=== PATIENT | male | born 1940 | race Caucasian/White ===

== ENCOUNTER 2019-08-12 18:51 | Inpatient (IN) ==
[2019-08-12 20:50] LABS: BASOPHILS % (AUTO) 0.3 % (0.2-1.0); EOSINOPHILS % (AUTO) 0.1 % (0.9-2.9); HEMATOCRIT 45.2 % (42.0-54.0); HEMOGLOBIN 15.4 g/dL (13.5-18.0); LYMPHOCYTES # (AUTO) 1.2 X10^3/uL (1.3-2.9); LYMPHOCYTES % (AUTO) 8.7 % (21.0-51.0); MEAN CORPUSCULAR HEMOGLOBIN 29.6 pg (27.0-34.0); MEAN CORPUSCULAR HGB CONC 34.1 g/dL (33.0-35.0); MEAN CORPUSCULAR VOLUME 86.8 fL (80.0-100.0); MEAN PLATELET VOLUME 9.2 fL (7.4-11.0); MONOCYTES # (AUTO) 0.6 x10^3/uL (0.3-0.8); MONOCYTES % (AUTO) 4.1 % (0.0-13.0); NEUTROPHILS # (AUTO) 11.8 x10^3/uL (2.2-4.8); NEUTROPHILS % (AUTO) 86.8 % (42.0-75.0); PLATELET COUNT 199 X10^3/uL (150.0-450.0); RED BLOOD COUNT 5.21 X10^6/uL (4.7-6.0); RED CELL DISTRIBUTION WIDTH 14.1 % (11.6-16.5); WHITE BLOOD COUNT 13.6 X10^3/uL (3.6-10.0)
--- NOTE | 2019-08-12 20:50 | DR.GENAD ---
HPI Time Seen Time Seen by Provider: 08/12/19 20:32 PCP Primary Care Physician: LIZBET VEGA HPI Comment HPI Comment: PATIENT IS 79YR OLD MALE IN ER WITH GENERALIZED WEAKNESS AND MALAISE TIMES 3 WEEKS. TREATED FOR SINUS INFECTION TWICE. NOT RESOLVING AND GETTING WORSE. EATING POORLY AND FEELING WEAKER. Complaint/Symptoms Chief Complaint Doctors Comments: GENERALIZED WEAKNESS AND MALAISE TIMES 3 WEE [place]. Chief Complaint:: PT AMBULATED IN ED WITH C/O WEAK AND SICK X 3 WEEKS. STATES HE HAS BEEN BEING TREATED FOR SINUS INFECTION BUT HAS BEEN GETTING WEAKER AND WEAKER. Nurses notes reviewed Nurses Notes Review: Yes Source History Provided: Patient Mode of Arrival Mode of Arrival: Ambulatory Timing Onset of Chief Complaint: 07/22/19 Came on: Gradually Duration Duration: Constant Duration: Weeks Severity Severity: Moderate Modifying Factors Worsens:: MOVEMENT Improves:: REST. Other History Other History: DM, HTN. PMH PMH Past Medical History: Yes Past Medical History: Arthritis, Diabetes, Dyslipidemia, GERD, Hypertension and Hypothyroidism Past Surgical History: Yes Surgical History: Appendectomy and Ortho Surgery Family History History of Family Medical Conditions: No Social History Does patient currently use any type of tobacco product: No Have you used tobacco products in the last 12 months: No Type of Tobacco Use: None Does any household member use tobacco: No Alcohol Use: None Do you use any recreational Drugs:: No Lives With: Spouse Lives Where: Home infectious screening In the last 2 months have you had wt loss of >10#?: NO Have you had fever, night sweats or hemotysis?: No Have you traveled outside the country in the last 6 months?: No Isolation: Standard ROS Review of Systems Constitutional: See HPI, Malaise, Weakness and Fatigue; negative Fever Eyes: No Symptoms Reported and See HPI ENTM: No Symptoms Reported and See HPI Respiratoy: No Symptoms Reported and See HPI; negative Moist Cough, Short of Breath and Wheezing Cardiovascular: No Symptoms Reported and See HPI; negative Chest Pain, Edema and Palpitations Gastrointestinal/Abdominal: No Symptoms Reported and See HPI; negative Abdominal Pain, Diarrhea, Nausea and Vomiting Genitourinary: No Symptoms Reported and See HPI; negative Dysuria, Frequency and Hematuria Neurological: See HPI and Weakness; negative Headache and Dizziness Musculoskeletal: No Symptoms Reported and See HPI; negative Back Pain Integumentary: No Symptoms Reported and See HPI; negative Change in Color, Rash and Juandice Hematologic/Lymphatic: No Symptoms Reported and See HPI; negative Easy Bruising and Swollen Glands Endocrine: No Symptoms Reported, See HPI and Decreased Appetite; negative Increased Thirst and Increased Urine Psychiatric: No Symptoms Reported and See HPI All Other Systems: Reviewed and Negative PE Vital Signs Vitals: Temperature 97.8 F Pulse Rate [Left Brachial] 53 Pulse Rate 81 Respiratory Rate 20 Blood Pressure [Left Arm] 190/83 Blood Pressure 162/72 O2 Sat by Pulse Oximetry 99 General Limitations: No Limitations General Appearance: Alert and In No Apparent Distress Head Head Exam: Normal Inspection and Atraumatic Eyes Eye exam: Normal Appearance, PERRL and EOMI; negative Scleral Icterus and Conjunctival Injection ENT ENT Exam: Normal Exam and Normal Oropharynx; negative Normal External Ear Exam External Ear Exam: Normal External Inspection; negative Auricular Hematoma, Auricular Trauma and Pain with Movement TM/Canal Exam: Bilateral: Normal Nose Exam: Normal Nose Exam and Sinus Tenderness Mouth Exam: Normal Inspection Throat Exam: Normal Inspection Neck Neck Exam: Normal Inspection and Trachea Midline; negative Tenderness and Lymphadenopathy Chest Chest Inspection: Normal Inspection and Symmetric Chest Wall Rise; negative Tenderness Respiratory Respiratory Exam: Normal Lung Sounds Bilat; negative Accessory Muscle Use, Chest Wall Tenderness and Respiratory Distress Respiratory Exam: Bilateral: Rhonchi and Lower: Rhonchi Cardiovascular Cardiovascular Exam: Regular Rate, Normal Rhythm and Normal Heart Sounds Abdominal Exam Abdominal Exam: Normal Inspection, Normal Bowel Sounds and Soft; negative Tenderness Extremities Extremities Exam: Normal Inspection and Normal Capillary Refill; negative Tenderness, Edema and Calf Tenderness Back Back Exam: Normal Inspection; negative (R) CVA Tenderness and (L) CVA Tenderness Neurologic Neurological Exam: Alert, Oriented X3 and CN II-XII Intact; negative Motor Sensory Deficit Psychiatric Psychiatric Exam: Normal Affect and Normal Mood Skin Skin Exam: Dry MDM Additional Information Additional Information Obtained From: Family Differential Diagnosis Differential Diagnosis: GENERALIZED WEAKNESS, PNEUMONIA, SINUSITIS, COURSE Treatment Treatment: SEE ORDERS. Education/Counseling Education/Counseling: Patient and Family Educated On: Diagnosis ROR Labs Reviewed Laboratory Results Reviewed?: Yes Result Diagrams: 08/15/19 05:00 08/15/19 05:00 Laboratory: WBC 13.6 X10^3/uL (3.6-10.0) H 08/12/19 20:42 RBC 5.21 X10^6/uL (4.7-6.0) 08/12/19 20:42 Hgb 15.4 g/dL (13.5-18.0) 08/12/19 20: Hct 45.2 % (42.0-54.0) 08/12/19 20: MCV 86.8 fL (80.0-100.0) 08/12/19 20: MCH 29.6 pg (27.0-34.0) 08/12/19: MCHC 34.1 g/dL (33.0-35.0) 08/12/19: RDW 14.1 % (11.6-16.5) 08/12/19: Plt Count 199 X10^3/uL (150.0-450.0) 08/12/19 MPV 9.2 fL (7.4-11.0) 08/12/19 20 Neut % (Auto) 86.8 % (42.0-75.0) H 08/12/19: Lymph % (Auto) 8.7 % (21.0-51.0) L 08/12/19 20: [place] % (Auto) 4.1 % (0.0-13.0) 08/12/19 Eos % (Auto) 0.1 % (0.9-2.9) L 08/12/19 Baso % (Auto) 0.3 % (0.2-1.0) 08/12/19 20: Neut # (Auto) 11.8 x10^3/uL (2.2-4.8) H 08/12/19: Lymph # (Auto) 1.2 X10^3/uL (1.3-2.9) L 08/12/19 20: [place] # (Auto) 0.6 x10^3/uL (0.3-0.8) 08/12/19 Eos # (Auto) 0.0 x10^3/uL (0.0-0.2) 08/12/19 20 Baso # (Auto) 0.0 X10^3/uL (0.0-0.1) 08/12/19: Absolute Nucleated RBC 0.0 /100WBC 02/26/20 20:42 Sodium 125 mmol/L (136-145) L* 08/12/19 20:42 Corrected Sodium 133 mmol/L (136-145) L 08/12/19 20:42 Potassium 5.3 mmol/L (3.5-5.1) H 08/12/19 20:42 Chloride 91 mmol/L (98-107) L 08/12/19 20:42 Carbon Dioxide 25.7 mmol/L (21-32) 08/12/19 20:42 BUN 40 mg/dL (7-18) H 08/12/19 20:42 Creatinine 2.17 mg/dL (0.70-1.30) H 08/12/19 20:42 Est GFR (MDRD) Af Amer 38 (>60) L 08/12/19 20:42 Est GFR (MDRD) Non-Af 31 (>60) L 08/12/19 20:42 Glucose 440 mg/dL (65-99) H 08/12/19 20:42 POC Glucose (mg/dL) 280 mg/dL (65-99) H 08/13/19 01:58 Calcium 9.2 mg/dL (8.5-10.1) 08/12/19 20:42 Corrected Calcium TNP 08/12/19 20:42 Total Bilirubin 1.00 mg/dL (0.2-1.0) 08/12/19 20:42 AST 13 Units/L (15-37) L 08/12/19 20:42 ALT 24 Units/L (12-78) 08/12/19 20:42 Alkaline Phosphatase 66 Units/L (46-116) 08/12/19 20:42 Creatine Kinase 63 Units/L (39-308) 08/13/19 00:49 CK-MB (CK-2) 2.1 ng/mL (0-4.0) 08/13/19 00:49 CK/CKMB % Calc 3.3 % (<4) 08/13/19 00:49 Troponin I 0.08 ng/mL (0-1.5) 08/13/19 00:49 Total Protein 7.3 g/dL (6.4-8.2) 08/12/19 20:42 Albumin 4.1 g/dL (3.4-5.0) 08/12/19 20:42 Globulin 3.2 g/dL (2.5-4.5) 08/12/19 20:42 Albumin/Globulin Ratio 1.3 Ratio (1.1-2.1) 08/12/19 20:42 Specimen Type Clean catch urine 08/12/19 21:13 Urine Color Yellow (YELLOW) 08/12/19 21:13 Urine Appearance Clear (CLEAR) 08/12/19 21:13 Urine pH 5.0 (5.0 - 8.0) 08/12/19 21:13 Ur Specific [place] 1.010 (1.000-1.030) 08/12/19 21:13 Urine Protein Negative (NEGATIVE) 08/12/19 21:13 Urine Glucose (UA) 4+ (NEGATIVE) 08/12/19 21:13 Urine Ketones Negative (NEGATIVE) 08/12/19 21:13 Urine Occult Blood Negative (NEGATIVE) 08/12/19 21:13 Urine Nitrite Negative (NEGATIVE) 08/12/19 21:13 Urine Bilirubin Negative (NEGATIVE) 08/12/19 21:13 Urine Urobilinogen Normal (NORMAL) 08/12/19 21:13 Ur Leukocyte Esterase Negative (NEGATIVE) 08/12/19 21:13 Acetone, Semi-Quant Negative (NEGATIVE) 08/12/19 20:42 XRAY XRAY Interpreted by: Radiologist (REPORT NOTED AND DISCUSSED WITH PATIENT.) and Self EKG Rate: 52 [place]: Normal Rhythm: NSR Block: None Hypertrophy: None ST: Normal Opioid Opioid Risk Tool Age (Daren box if 16-45): No History of Preadolescent Sexual Abuse: No Total: 0 Total Score Risk Category: Low Risk Copyright: Tyrone POLLOCK predicting aberrant behaviors Diagnosis Discharge Problem: Acute hyperglycemia, Weakness, Abnormal cardiac enzyme level Instructions Forms: Excuse From Work Patient Portal
[2019-08-12] MEDS ORDERED: NS 1000 ML 1,000 ML ONE (21:01)
--- NOTE | 2019-08-12 21:03 | RAD ---
CHEST, 1 VIEWHistory: ACUTE CHEST PAIN, WEAKNESS AND FATIGUEComparison: 09/03/2017Findings: Cardiac silhouette is normal in size. No acute alveolar infiltrate or significant effusion is identified. No pneumothorax.Impression: No acute cardiopulmonary abnormality.Electronically signed by: QUINN CHOPRA (Aug 12, 2019 21:00:47)
[2019-08-12 21:08] LABS: ALANINE AMINOTRANSFERASE 24 Units/L (12-78); ALBUMIN 4.1 g/dL (3.4-5.0); ALKALINE PHOSPHATASE 66 Units/L (46-116); ASPARTATE AMINO TRANSFERASE 13 Units/L (15-37); BLOOD UREA NITROGEN 40 mg/dL (7-18); CALCIUM 9.2 mg/dL (8.5-10.1); CARBON DIOXIDE 25.7 mmol/L (21-32); CHLORIDE 91 mmol/L (98-107); CKMB % 3.2 % (<4); COR NA(FOR HYPERGLY) 133 mmol/L (136-145); CREATINE KINASE 74 Units/L (39-308); CREATINE KINASE MB 2.4 ng/mL (0-4.0); CREATININE 2.17 mg/dL (0.70-1.30); TOTAL PROTEIN 7.3 g/dL (6.4-8.2); TROPONIN I 0.06 ng/mL (0-1.5); eGFR NON BLACK RACES 31 (>60)
[2019-08-12 21:10] LABS: SODIUM 125 mmol/L (136-145)
[2019-08-12 21:22] LABS: BILIRUBIN,URINE NEGATIVE (NEGATIVE); BLOOD/HEMOGLOBIN,URINE NEGATIVE (NEGATIVE); GLUCOSE, URINE 4+ (NEGATIVE); KETONES,URINE NEGATIVE (NEGATIVE); LEUKOCYTE ESTERASE ,URINE NEGATIVE (NEGATIVE); NITRITES,URINE NEGATIVE (NEGATIVE); PROTEIN,URINE NEGATIVE (NEGATIVE); UROBILINOGEN,URINE NORMAL (NORMAL)
[2019-08-12 21:26] LABS: APPEARANCE,URINE CLEAR (CLEAR); COLOR,URINE YELLOW (YELLOW)
[2019-08-12] MEDS: NS 1000 ML 1,000 ML IV SCH (21:41)
[2019-08-13 01:28] LABS: CKMB % 3.3 % (<4); CREATINE KINASE MB 2.1 ng/mL (0-4.0); TROPONIN I 0.08 ng/mL (0-1.5)
[2019-08-13] MEDS ORDERED: NS 1000 ML 1,000 ML IV SCH (02:00)
[2019-08-13] MEDS ORDERED: NORVASC TAB 5 MG ONE (02:01)
[2019-08-13 03:55] VITALS: BMI 29.7
[2019-08-13 05:50] LABS: BASOPHILS % (AUTO) 0.3 % (0.2-1.0); EOSINOPHILS # (AUTO) 0.1 x10^3/uL (0.0-0.2); HEMATOCRIT 43.4 % (42.0-54.0); HEMOGLOBIN 14.7 g/dL (13.5-18.0); LYMPHOCYTES # (AUTO) 1.7 X10^3/uL (1.3-2.9); LYMPHOCYTES % (AUTO) 20.8 % (21.0-51.0); MEAN CORPUSCULAR HEMOGLOBIN 29.5 pg (27.0-34.0); MEAN CORPUSCULAR VOLUME 86.8 fL (80.0-100.0); MEAN PLATELET VOLUME 9.4 fL (7.4-11.0); MONOCYTES # (AUTO) 0.4 x10^3/uL (0.3-0.8); MONOCYTES % (AUTO) 4.9 % (0.0-13.0); NEUTROPHILS # (AUTO) 6.1 x10^3/uL (2.2-4.8); PLATELET COUNT 166 X10^3/uL (150.0-450.0); RED CELL DISTRIBUTION WIDTH 14.1 % (11.6-16.5); WHITE BLOOD COUNT 8.3 X10^3/uL (3.6-10.0)
[2019-08-13] MEDS ORDERED: HumuLIN R ONE (05:58)
[2019-08-13] MEDS: HumuLIN R SC PRN ×4 (06:00→17:33)
[2019-08-13 06:23] LABS: ALANINE AMINOTRANSFERASE 19 Units/L (12-78); ALBUMIN 3.6 g/dL (3.4-5.0); ALKALINE PHOSPHATASE 56 Units/L (46-116); ASPARTATE AMINO TRANSFERASE 12 Units/L (15-37); BLOOD UREA NITROGEN 33 mg/dL (7-18); CALCIUM 8.5 mg/dL (8.5-10.1); CARBON DIOXIDE 27.2 mmol/L (21-32); CHLORIDE 100 mmol/L (98-107); CHOL/HDL RATIO 2.7 (0.0-5.0); CHOLESTEROL 166 mg/dL (0-200); COR NA(FOR HYPERGLY) 136 mmol/L (136-145); CREATINE KINASE 60 Units/L (39-308); CREATINE KINASE MB 2.4 ng/mL (0-4.0); CREATININE 1.76 mg/dL (0.70-1.30); HDL CHOLESTEROL 61 mg/dL (40-60); MAGNESIUM 2.1 mg/dL (1.7-2.9); SODIUM 132 mmol/L (136-145); TOTAL PROTEIN 6.5 g/dL (6.4-8.2); TRIGLYCERIDES 53 mg/dL (0-150); TROPONIN I 0.07 ng/mL (0-1.5); eGFR NON BLACK RACES 40 (>60)
[2019-08-13] MEDS ORDERED: SAW PALMETTO PO SCH (09:00)
[2019-08-13] MEDS ORDERED: PATIENT'S HOME MEDICATION (Diclofenac Sodium 75 MG) PO SCH (09:00)
[2019-08-13] MEDS ORDERED: NORVASC TAB 10 MG PO SCH (09:00)
[2019-08-13] MEDS ORDERED: LEVAQUIN TAB 500 MG PO SCH (09:00)
[2019-08-13] MEDS: LEVAQUIN PREMIX IV 750 MG 750 MG/150 ML BAG IV SCH (09:43)
[2019-08-13] MEDS: ASPIRIN EC 81 MG PO SCH (09:55)
[2019-08-13] MEDS: NAPROSYN PO SCH ×2 (09:56→20:57)
[2019-08-13] MEDS: AMARYL TAB 4 MG PO SCH ×2 (10:33→20:57)
[2019-08-13 11:34] LABS: CKMB % 3.4 % (<4); CREATINE KINASE MB 2.1 ng/mL (0-4.0); TROPONIN I 0.05 ng/mL (0-1.5)
--- NOTE | 2019-08-13 11:44 | DR.H&P ---
H&P History & Physical for Day of: H&P Date: 08/13/19 Chief Complaint Chief Complaint: weakness, dehydration Allergies Allergies Allergy/AdvReac Type Severity Reaction Status Date / Time acetaminophen [From Percocet] Allergy Verified 03/16/18 06:31 oxycodone [From Percocet] Allergy Verified 03/16/18 06:31 History of Present Illness History of Present Illness: Mr. Chatman is a 79y/o male with a PMH of HTN, DM, HLD, BPH and GERD who presented due to weakness. Patient has been treated for sinus infection for the past 2 weeks. He states he took an antibiotic for 10 days but continued to have congestion and cough so he went back to PCP and was given steroids and a shot but he continued to get weaker and weaker. He states he was feeling SOB on walking at home. He was not able to get around due to being so weak and getting short of breath. He denies N/V/D or abdominal pain. Denies chest pain or pressure, no dizziness. ED work-up: CXR negative Labs: Na: 125 Cr: 2.17 K:5.3 Tropinin: 0.06, 0.08 Received IVF Past Medical History Past Medical History: Arthritis, Diabetes, Dyslipidemia, GERD, Hypertension and Hypothyroidism Past Surgical History Surgical History: Appendectomy and Ortho Surgery Family History Family Medical History: Diabetes Mellitus Social History Does patient currently use any type of tobacco product: No Have you used tobacco products in the last 12 months: No Type of Tobacco Use: None Does any household member use tobacco: No Alcohol Use: None Drug Use: None Prescription drug monitoring program results: PDMP was not reviewed Medications Home Medications: acetaminophen [From Percocet] Allergy (Verified 03/16/18 06:31) oxycodone [From Percocet] Allergy (Verified 03/16/18 06:31) CONTINUE taking the following medications amlodipine 10 mg PO HS 08/12/19 [History] aspirin [Aspirin Low Dose] 81 mg PO DAILY 08/12/19 [History] diclofenac sodium 75 mg PO BIDWM 08/12/19 [History] diphenhydramine HCl [Benadryl] 25 mg PO PRN PRN 08/12/19 [History] glimepiride 4 mg PO BID 08/12/19 [History] hydrochlorothiazide 25 mg PO DAILY 08/12/19 [History] levofloxacin 500 mg PO DAILY 08/12/19 [History] losartan 50 mg PO DAILY 08/12/19 [History] pantoprazole 40 mg PO HS 08/12/19 [History] pravastatin 40 mg PO HS 08/12/19 [History] saw palmetto fruit 900 mg PO DAILY 08/12/19 [History] tamsulosin 0.4 mg PO HS 08/12/19 [History] insulin glargine [Lantus Solostar U-100 Insulin] See Rx Instructions .ROUTE .COMPLEX PRN 08/13/19 [History] testosterone cypionate 1 mg IM Q2W 08/13/19 [History] Labs Result Diagrams: 08/13/19 04:55 08/13/19 04:55 Labs: Laboratory WBC 8.3 X10^3/uL (3.6-10.0) 08/13/19 04:55 RBC 5.00 X10^6/uL (4.7-6.0) 08/13/19 04:55 Hgb 14.7 g/dL (13.5-18.0) 08/13/19 04:55 Hct 43.4 % (42.0-54.0) 08/13/19 04:55 MCV 86.8 fL (80.0-100.0) 08/13/19 04:55 MCH 29.5 pg (27.0-34.0) 08/13/19 04:55 MCHC 34.0 g/dL (33.0-35.0) 08/13/19 04:55 RDW 14.1 % (11.6-16.5) 08/13/19 04:55 Plt Count 166 X10^3/uL (150.0-450.0) 08/13/19 04:55 MPV 9.4 fL (7.4-11.0) 08/13/19 04:55 Neut % (Auto) 73.0 % (42.0-75.0) 08/13/19 04:55 Lymph % (Auto) 20.8 % (21.0-51.0) L 08/13/19 04:55 [place] % (Auto) 4.9 % (0.0-13.0) 08/13/19 04:55 Eos % (Auto) 1.0 % (0.9-2.9) 08/13/19 04:55 Baso % (Auto) 0.3 % (0.2-1.0) 08/13/19 04:55 Neut # (Auto) 6.1 x10^3/uL (2.2-4.8) H 08/13/19 04:55 Lymph # (Auto) 1.7 X10^3/uL (1.3-2.9) 08/13/19 04:55 [place] # (Auto) 0.4 x10^3/uL (0.3-0.8) 08/13/19 04:55 Eos # (Auto) 0.1 x10^3/uL (0.0-0.2) 08/13/19 04:55 Baso # (Auto) 0.0 X10^3/uL (0.0-0.1) 08/13/19 04:55 Absolute Nucleated RBC 0.1 /100WBC 08/13/19 04:55 Sodium 132 mmol/L (136-145) L 08/13/19 04:55 Corrected Sodium 136 mmol/L (136-145) 08/13/19 04:55 Potassium 4.4 mmol/L (3.5-5.1) 08/13/19 04:55 Chloride 100 mmol/L (98-107) 08/13/19 04:55 Carbon Dioxide 27.2 mmol/L (21-32) 08/13/19 04:55 BUN 33 mg/dL (7-18) H 08/13/19 04:55 Creatinine 1.76 mg/dL (0.70-1.30) H 08/13/19 04:55 Est GFR (MDRD) Af Amer 48 (>60) L 08/13/19 04:55 Est GFR (MDRD) Non-Af 40 (>60) L 08/13/19 04:55 Glucose 264 mg/dL (65-99) H 08/13/19 04:55 POC Glucose (mg/dL) 178 mg/dL (65-99) H 08/13/19 10:53 Calcium 8.5 mg/dL (8.5-10.1) 08/13/19 04:55 Corrected Calcium TNP 08/13/19 04:55 Magnesium 2.1 mg/dL (1.7-2.9) 08/13/19 04:55 Total Bilirubin 1.10 mg/dL (0.2-1.0) H 08/13/19 04:55 AST 12 Units/L (15-37) L 08/13/19 04:55 ALT 19 Units/L (12-78) 08/13/19 04:55 Alkaline Phosphatase 56 Units/L (46-116) 08/13/19 04:55 Creatine Kinase 60 Units/L (39-308) 08/13/19 04:55 CK-MB (CK-2) 2.4 ng/mL (0-4.0) 08/13/19 04:55 CK/CKMB % Calc 4.0 % (<4) 08/13/19 04:55 Troponin I 0.07 ng/mL (0-1.5) 08/13/19 04:55 Total Protein 6.5 g/dL (6.4-8.2) 08/13/19 04:55 Albumin 3.6 g/dL (3.4-5.0) 08/13/19 04:55 Globulin 2.9 g/dL (2.5-4.5) 08/13/19 04:55 Albumin/Globulin Ratio 1.2 Ratio (1.1-2.1) 08/13/19 04:55 Triglycerides 53 mg/dL (0-150) 08/13/19 04:55 Cholesterol 166 mg/dL (0-200) 08/13/19 04:55 LDL Cholesterol, Calc 94 mg/dL (0-100) 08/13/19 04:55 HDL Cholesterol 61 mg/dL (40-60) H 08/13/19 04:55 Cholesterol/HDL Ratio 2.7 (0.0-5.0) 08/13/19 04:55 Specimen Type Clean catch urine 08/12/19 21:13 Urine Color Yellow (YELLOW) 08/12/19 21:13 Urine Appearance Clear (CLEAR) 08/12/19 21:13 Urine pH 5.0 (5.0 - 8.0) 08/12/19 21:13 Ur Specific [place] 1.010 (1.000-1.030) 08/12/19 21:13 Urine Protein Negative (NEGATIVE) 08/12/19 21:13 Urine Glucose (UA) 4+ (NEGATIVE) 08/12/19 21:13 Urine Ketones Negative (NEGATIVE) 08/12/19 21:13 Urine Occult Blood Negative (NEGATIVE) 08/12/19 21:13 Urine Nitrite Negative (NEGATIVE) 08/12/19 21:13 Urine Bilirubin Negative (NEGATIVE) 08/12/19 21:13 Urine Urobilinogen Normal (NORMAL) 08/12/19 21:13 Ur Leukocyte Esterase Negative (NEGATIVE) 08/12/19 21:13 Acetone, Semi-Quant Negative (NEGATIVE) 08/12/19 20:42 Review of Systems Constitutional: Weakness and Malaise; denies Fever, Chills and Sweats Eyes: No Symptoms Reported ENT: Nose Discharge and Nose Congestion Respiratory: Cough, Shortness of Breath and SOB with Excertion; denies Hemoptysis, Sputum and Wheezing Cardiovascular: Edema; denies Chest Pain and Light Headedness Gastrointestinal: denies Nausea, Vomiting, Abdominal Pain and Diarrhea Genitourinary: No Symptoms Reported Musculoskeletal: No Symptoms Reported Skin: No Symptoms Reported Neurological: No Symptoms Reported Physical Exam Vital Signs: Temperature 97.9 F Pulse Rate [Left Brachial] 63 Pulse Rate 81 Respiratory Rate 24 Blood Pressure [Left Arm] 159/77 Blood Pressure 162/72 O2 Sat by Pulse Oximetry 100 Oriented: Normal Nose: Normal Throat: Normal Respiratory: RLL Rales and LLL Rales Cardiovascular: Normal and Edema Auscultation: Bowel Sounds: Normal Tenderness: Normal Skin: Normal Musculoskeletal: Normal Psychiatric: Normal Mood Description: Calm Affect: Normal Speech Pattern: Clear and Appropriate Assessment/Plan (1) Weakness: Status: Acute Plan: due to dehydration and infection Continue gentle hydration. PT/OT (2) Abnormal cardiac enzyme level: Status: Acute Plan: Denies chest pain, troponin: 0.06 - 0.08 - 0.07 Continue telemetry Will get an echo to eval LV function due to edema (3) HTN (hypertension): Qualifiers: Hypertension type: essential hypertension Qualified Code(s): I10 - Essential (primary) hypertension Status: Acute Plan: HCTZ and losartan held due to DAMARIS, hyperkalemia and dehydration Continue amlodipine (4) DAMARIS (acute kidney injury): Status: Acute Plan: Cr: 2.17. trending down 1.76 with hydration Monitor AM labs, avoid nephrotoxic medications (5) Dehydration: Status: Acute Plan: Continue gentle hydration, LE edema noted. Continue to monitor. 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
[2019-08-13] MEDS: NS 1000 ML 1,000 ML IV SCH (12:32)
[2019-08-13] MEDS: LOVENOX INJ 40 MG SYR SC SCH (12:35)
[2019-08-13] MEDS: SNACK - Diabetic Appropriate PO SCH (20:56)
[2019-08-13] MEDS: FLOMAX PO SCH (20:57)
[2019-08-13] MEDS: NORVASC TAB 10 MG PO SCH (20:58)
[2019-08-13] MEDS: PRAVACHOL PO SCH (20:58)
[2019-08-13] MEDS: PROTONIX TAB 40 MG PO SCH (20:58)
[2019-08-14] MEDS: NS 1000 ML 1,000 ML IV SCH ×2 (02:27→02:28)
[2019-08-14 06:13] LABS: BASOPHILS % (AUTO) 0.7 % (0.2-1.0); EOSINOPHILS # (AUTO) 0.1 x10^3/uL (0.0-0.2); EOSINOPHILS % (AUTO) 2.5 % (0.9-2.9); HEMATOCRIT 39.6 % (42.0-54.0); HEMOGLOBIN 13.7 g/dL (13.5-18.0); LYMPHOCYTES # (AUTO) 1.5 X10^3/uL (1.3-2.9); LYMPHOCYTES % (AUTO) 28.7 % (21.0-51.0); MEAN CORPUSCULAR HEMOGLOBIN 29.7 pg (27.0-34.0); MEAN CORPUSCULAR HGB CONC 34.7 g/dL (33.0-35.0); MEAN CORPUSCULAR VOLUME 85.5 fL (80.0-100.0); MEAN PLATELET VOLUME 9.1 fL (7.4-11.0); MONOCYTES # (AUTO) 0.4 x10^3/uL (0.3-0.8); MONOCYTES % (AUTO) 6.6 % (0.0-13.0); NEUTROPHILS # (AUTO) 3.3 x10^3/uL (2.2-4.8); NEUTROPHILS % (AUTO) 61.5 % (42.0-75.0); PLATELET COUNT 137 X10^3/uL (150.0-450.0); RED BLOOD COUNT 4.63 X10^6/uL (4.7-6.0); RED CELL DISTRIBUTION WIDTH 14.2 % (11.6-16.5); WHITE BLOOD COUNT 5.3 X10^3/uL (3.6-10.0)
[2019-08-14 06:38] LABS: CARBON DIOXIDE 23.5 mmol/L (21-32); CREATININE 1.5 mg/dL (0.70-1.30)
[2019-08-14] MEDS ORDERED: COLACE CAP 100 MG PO STA (08:17)
[2019-08-14] MEDS ORDERED: COLACE CAP 100 MG PO ONE (08:27)
[2019-08-14] MEDS: LOVENOX INJ 40 MG SYR SC SCH (08:30)
[2019-08-14] MEDS: ASPIRIN EC 81 MG PO SCH (08:30)
[2019-08-14] MEDS: AMARYL TAB 4 MG PO SCH ×2 (08:31→21:13)
[2019-08-14] MEDS: NAPROSYN PO SCH ×2 (08:33→21:13)
[2019-08-14] MEDS: COZAAR PO SCH (08:34)
--- NOTE | 2019-08-14 10:03 | RAD ---
HISTORYABD PAIN Relevant Clinical InformationSTUDYKUBCOMPARISONNo priorsFINDINGSThere is large amount of stool present throughout the colon. Small amount gas is present within the small bowel mid abdomen. No evidence of bowel obstruction is seen. There is no evidence of opaque stone. There is multilevel lumbar spondylosis.IMPRESSIONLarge amount of stool present throughout the colon. No bowel obstruction is seen.Electronically signed by: MICHAEL CRUZ (Aug 14, 2019 10:03:11)
[2019-08-14] MEDS ORDERED: CITROMA PO NR (10:33)
[2019-08-14] MEDS: HumuLIN R SC PRN ×3 (11:00→21:16)
--- NOTE | 2019-08-14 12:41 | PCM.PROG ---
Progress Note Progress Note for Day of Date of Exam: 08/14/19 Subjective Subjective: Patient seen at bedside, no events overnight. He states he feels bloated with abdominal distention. He reports nausea, no vomiting. He has not had a BM for the past 3 days. He does have a hx of constipation, has used mag citrate at home. He denies SOB. He is currently on RA. Will DC fluids due to LE edema, monitor AM labs. RT for 6 min walk test to evaluate for home oxygen, PT/OT. Will get KUB, add Colace and Mag citrate. Possible discharge tomorrow. Past Medical Family Social History Past Med/Fam/Surg Hx: No changes since H&P Allergies: Allergies acetaminophen [From Percocet] Allergy (Verified 03/16/18 06:31) oxycodone [From Percocet] Allergy (Verified 03/16/18 06:31) Review of Systems ROS: No change since H&P Vital Signs and I&O's Vital Signs: Temperature 97.9 F Pulse Rate [Left Brachial] 70 Pulse Rate 67 Respiratory Rate 22 Blood Pressure [Left Arm] 190/77 Blood Pressure 162/72 O2 Sat by Pulse Oximetry 97 Intake and Output: Intake & Output 08/11/19 08/12/19 08/13/19 08/14/19 23:59 23:59 23:59 23:59 Intake Total 4380 / 4380 971 / 971 Output Total 4150 / 4150 900 / 900 Balance 230 / 230 71 / 71 Physical Exam Oriented: Normal Nose: Normal Throat: Normal Respiratory: Rales Cardiovascular: Normal and Edema Auscultation: Bowel Sounds: Normal Tenderness: Other (distended, mild discomfort ) Skin: Normal Musculoskeletal: Normal Psychiatric: Normal Mood Description: Calm Affect: Normal Speech Pattern: Clear and Appropriate Laboratory and Diagnostics Result Diagrams: 08/14/19 05:05 08/14/19 05:05 Labs: Laboratory WBC 5.3 X10^3/uL (3.6-10.0) 08/14/19 05:05 RBC 4.63 X10^6/uL (4.7-6.0) L 08/14/19 05:05 Hgb 13.7 g/dL (13.5-18.0) 08/14/19 05:05 Hct 39.6 % (42.0-54.0) L 08/14/19 05:05 MCV 85.5 fL (80.0-100.0) 08/14/19 05:05 MCH 29.7 pg (27.0-34.0) 08/14/19 05:05 MCHC 34.7 g/dL (33.0-35.0) 08/14/19 05:05 RDW 14.2 % (11.6-16.5) 08/14/19 05:05 Plt Count 137 X10^3/uL (150.0-450.0) L 08/14/19 05:05 MPV 9.1 fL (7.4-11.0) 08/14/19 05:05 Neut % (Auto) 61.5 % (42.0-75.0) 08/14/19 05:05 Lymph % (Auto) 28.7 % (21.0-51.0) 08/14/19 05:05 [place] % (Auto) 6.6 % (0.0-13.0) 08/14/19 05:05 Eos % (Auto) 2.5 % (0.9-2.9) 08/14/19 05:05 Baso % (Auto) 0.7 % (0.2-1.0) 08/14/19 05:05 Neut # (Auto) 3.3 x10^3/uL (2.2-4.8) 08/14/19 05:05 Lymph # (Auto) 1.5 X10^3/uL (1.3-2.9) 08/14/19 05:05 [place] # (Auto) 0.4 x10^3/uL (0.3-0.8) 08/14/19 05:05 Eos # (Auto) 0.1 x10^3/uL (0.0-0.2) 08/14/19 05:05 Baso # (Auto) 0.0 X10^3/uL (0.0-0.1) 08/14/19 05:05 Absolute Nucleated RBC 0.2 /100WBC 08/14/19 05:05 Sodium 136 mmol/L (136-145) 08/14/19 05:05 Corrected Sodium 137 mmol/L (136-145) 08/14/19 05:05 Potassium 4.4 mmol/L (3.5-5.1) 08/14/19 05:05 Chloride 105 mmol/L (98-107) 08/14/19 05:05 Carbon Dioxide 23.5 mmol/L (21-32) 08/14/19 05:05 BUN 26 mg/dL (7-18) H 08/14/19 05:05 Creatinine 1.50 mg/dL (0.70-1.30) H 08/14/19 05:05 Est GFR (MDRD) Af Amer 58 (>60) L 08/14/19 05:05 Est GFR (MDRD) Non-Af 48 (>60) L 08/14/19 05:05 Glucose 147 mg/dL (65-99) H 08/14/19 05:05 POC Glucose (mg/dL) 255 mg/dL (65-99) H 08/14/19 10:56 Calcium 8.0 mg/dL (8.5-10.1) L 08/14/19 05:05 Corrected Calcium TNP 08/13/19 04:55 Magnesium 2.1 mg/dL (1.7-2.9) 08/13/19 04:55 Total Bilirubin 1.10 mg/dL (0.2-1.0) H 08/13/19 04:55 AST 12 Units/L (15-37) L 08/13/19 04:55 ALT 19 Units/L (12-78) 08/13/19 04:55 Alkaline Phosphatase 56 Units/L (46-116) 08/13/19 04:55 Creatine Kinase 61 Units/L (39-308) 08/13/19 10:49 CK-MB (CK-2) 2.1 ng/mL (0-4.0) 08/13/19 10:49 CK/CKMB % Calc 3.4 % (<4) 08/13/19 10:49 Troponin I 0.05 ng/mL (0-1.5) 08/13/19 10:49 Total Protein 6.5 g/dL (6.4-8.2) 08/13/19 04:55 Albumin 3.6 g/dL (3.4-5.0) 08/13/19 04:55 Globulin 2.9 g/dL (2.5-4.5) 08/13/19 04:55 Albumin/Globulin Ratio 1.2 Ratio (1.1-2.1) 08/13/19 04:55 Triglycerides 53 mg/dL (0-150) 08/13/19 04:55 Cholesterol 166 mg/dL (0-200) 08/13/19 04:55 LDL Cholesterol, Calc 94 mg/dL (0-100) 08/13/19 04:55 HDL Cholesterol 61 mg/dL (40-60) H 08/13/19 04:55 Cholesterol/HDL Ratio 2.7 (0.0-5.0) 08/13/19 04:55 Specimen Type Clean catch urine 08/12/19 21:13 Urine Color Yellow (YELLOW) 08/12/19 21:13 Urine Appearance Clear (CLEAR) 08/12/19 21:13 Urine pH 5.0 (5.0 - 8.0) 08/12/19 21:13 Ur Specific [place] 1.010 (1.000-1.030) 08/12/19 21:13 Urine Protein Negative (NEGATIVE) 08/12/19 21:13 Urine Glucose (UA) 4+ (NEGATIVE) 08/12/19 21:13 Urine Ketones Negative (NEGATIVE) 08/12/19 21:13 Urine Occult Blood Negative (NEGATIVE) 08/12/19 21:13 Urine Nitrite Negative (NEGATIVE) 08/12/19 21:13 Urine Bilirubin Negative (NEGATIVE) 08/12/19 21:13 Urine Urobilinogen Normal (NORMAL) 08/12/19 21:13 Ur Leukocyte Esterase Negative (NEGATIVE) 08/12/19 21:13 Acetone, Semi-Quant Negative (NEGATIVE) 08/12/19 20:42 Plan (1) Weakness: Status: Acute Plan: due to dehydration and infection Continue PT/OT (2) Abnormal cardiac enzyme level: Status: Acute Plan: Denies chest pain, troponin: 0.06 - 0.08 - 0.07 Echo: EF 53%, severe LVH Denies symptoms (3) HTN (hypertension): Status: Acute Qualifiers: Hypertension type: essential hypertension Qualified Code(s): I10 - Essential (primary) hypertension Plan: HCTZ and losartan held due to DAMARIS, hyperkalemia and dehydration Continue amlodipine Will resume losartan (4) DAMARIS (acute kidney injury): Status: Acute Plan: Cr trending down 1.50 Monitor AM labs (5) Dehydration: Status: Acute Plan: Improved (6) Hyponatremia: Status: Acute Plan: Improved Na 136 Monitor AM labs (7) Hyperkalemia: Status: Acute Plan: Resolved (8) Diabetes: Status: Acute Qualifiers: Diabetes mellitus complication status: without complication Diabetes mellitus group home insulin use: with group home use Diabetes mellitus type: type 2 Qualified Code(s): E11.9 - Type 2 diabetes mellitus without complications; Z79.4 - residential (current) use of insulin Plan: SSI and glimepiride (9) Sinusitis: Status: Acute Qualifiers: Chronicity: subacute Sinusitis location: unspecified location Qualified Code(s): J01.90 - Acute sinusitis, unspecified Plan: Continue home med Levaquin CXR negative for infection (10) Constipation: Status: Acute Qualifiers: Constipation type: unspecified constipation type Qualified Code(s): K59.00 - Constipation, unspecified Plan: get KUB, add Colace and mag citrate
[2019-08-14] MEDS: SNACK - Diabetic Appropriate PO SCH (20:40)
[2019-08-14] MEDS: FLOMAX PO SCH (21:13)
[2019-08-14] MEDS: NORVASC TAB 10 MG PO SCH (21:14)
[2019-08-14] MEDS: PRAVACHOL PO SCH (21:14)
[2019-08-14] MEDS: PROTONIX TAB 40 MG PO SCH (21:14)
[2019-08-15 05:51] LABS: BASOPHILS % (AUTO) 0.7 % (0.2-1.0); EOSINOPHILS # (AUTO) 0.1 x10^3/uL (0.0-0.2); EOSINOPHILS % (AUTO) 2.5 % (0.9-2.9); HEMATOCRIT 39.5 % (42.0-54.0); HEMOGLOBIN 13.8 g/dL (13.5-18.0); LYMPHOCYTES # (AUTO) 1.5 X10^3/uL (1.3-2.9); LYMPHOCYTES % (AUTO) 27.5 % (21.0-51.0); MEAN CORPUSCULAR HGB CONC 34.8 g/dL (33.0-35.0); MEAN PLATELET VOLUME 9.2 fL (7.4-11.0); MONOCYTES # (AUTO) 0.4 x10^3/uL (0.3-0.8); MONOCYTES % (AUTO) 6.6 % (0.0-13.0); NEUTROPHILS # (AUTO) 3.3 x10^3/uL (2.2-4.8); NEUTROPHILS % (AUTO) 62.7 % (42.0-75.0); PLATELET COUNT 131 X10^3/uL (150.0-450.0); RED BLOOD COUNT 4.59 X10^6/uL (4.7-6.0); RED CELL DISTRIBUTION WIDTH 14.2 % (11.6-16.5); WHITE BLOOD COUNT 5.3 X10^3/uL (3.6-10.0)
[2019-08-15 05:58] LABS: BLOOD UREA NITROGEN 23 mg/dL (7-18); CALCIUM 7.9 mg/dL (8.5-10.1); CARBON DIOXIDE 24.8 mmol/L (21-32); CHLORIDE 104 mmol/L (98-107); COR NA(FOR HYPERGLY) 137 mmol/L (136-145); CREATININE 1.41 mg/dL (0.70-1.30); SODIUM 136 mmol/L (136-145); eGFR NON BLACK RACES 51 (>60)
[2019-08-15] MEDS: LOVENOX INJ 40 MG SYR SC SCH (08:18)
[2019-08-15] MEDS: AMARYL TAB 4 MG PO SCH (08:18)
[2019-08-15] MEDS: COZAAR PO SCH (08:18)
[2019-08-15] MEDS: ASPIRIN EC 81 MG PO SCH (08:18)
[2019-08-15] MEDS: LEVAQUIN PREMIX IV 750 MG 750 MG/150 ML BAG IV SCH (08:19)
[2019-08-15] MEDS: NAPROSYN PO SCH (08:21)
[2019-08-15] MEDS: HumuLIN R SC PRN (11:14)
[2019-08-15 11:16] VITALS: BP 166/70
== END 2019-08-15 12:05 | disposition home or self-care (01) | DRG 641 ==
LOC: ICU 18:55 → ER 18:55 → OBSVTOIN 08-13 02:07 → ICU 08-13 02:59
PROVIDERS: ADMIT Internal Medicine; ATTEND Internal Medicine
DX: N17.9 Acute kidney failure, unspecified; I10 Essential (primary) hypertension; R94.31 Abnormal electrocardiogram [ECG] [EKG]; E87.5 Hyperkalemia; E86.0 Dehydration; R60.0 Localized edema; E03.8 Other specified hypothyroidism; R07.89 Other chest pain; K21.9 Gastro-esophageal reflux disease without esophagitis; R53.1 Weakness; Z79.4 Long term (current) use of insulin; E87.1 Hypo-osmolality and hyponatremia; R74.8 Abnormal levels of other serum enzymes; K59.09 Other constipation; J01.80 Other acute sinusitis
CPT/HCPCS: 36415; 71010; 71045; 74000; 74018; 80048; 80053; 80061; 81003; 82009; 82550; 82553; 83735; 84484; 85025; 93005; 93306; 94760; 96365; 96367; 97161; 99285; A4222; J1650; J1815; J1956; J7030